=== PATIENT | male | born 1965 | race Caucasian/White ===

== ENCOUNTER 2023-11-14 18:32 | Inpatient (IN) | payer BC, SELFPAY ==
[2023-11-14] VITALS (9 sets, daily range): BP systolic 97–126; BP diastolic 61–73; BMI 38.3; BMI 37.7
[2023-11-14 14:13] LABS: % Basophils 1.8 % (0-2); % Eosinophils 6.5 % (0-6); % Immature Granulocytes 0.4 % (0-0.5); % Lymphocytes 20.1 % (20.5-51.1); % Monocytes 9.2 % (1.7-9.3); Absolute Basophils 0.1 10^3/uL (0-0.2); Absolute Eosinophils 0.5 10^3/uL (0-0.7); Absolute Lymphocytes 1.6 10^3/uL (1.2-3.4); Absolute Monocytes 0.7 10^3/uL (0.1-0.6); Absolute Neutrophils 4.8 10^3/uL (1.4-6.5); Hemoglobin 10.9 g/dL (13.0-18.0); Mean Corp Hgb Conc. 31.1 g/dL (33.0-37.0); Mean Corpuscular Hgb 25.9 pg (27.0-31.0); Mean Corpuscular Volume 83.1 fL (80.0-94.0); Mean Platelet Volume 8.3 fL (7.4-10.4); Nucleated Red Blood Cells % 0 % (-); Platelet Count 520 10^3/uL (130-400); Red Blood Cell Count 4.21 10^6/uL (4.70-6.10); Red Cell Dist. Width 16.7 % (11.5-14.5); White Blood Cell Count 7.8 10^3/uL (4.8-10.8)
[2023-11-14 14:26] LABS: ALT (SGPT) 25 U/L (0-50); AST (SGOT) 24 U/L (17-59); Albumin 3.8 g/dl (3.5-5.0); Alkaline Phosphatase 77 U/L (38-126); Blood Urea Nitrogen 15 mg/dl (9-20); Calcium 9.3 mg/dl (8.4-10.2); Carbon Dioxide 26 mmol/L (22-30); Chloride 104 mmol/L (98-107); Glucose 102 mg/dl (70-99); Potassium 4.4 mmol/L (3.5-5.1); Sodium 133 mmol/L (135-145); Total Bilirubin 0.7 mg/dl (0.2-1.3); Total Protein 6.6 g/dl (6.3-8.2); eGFR > 60.00
[2023-11-14 14:34] LABS: Troponin I 0.012 ng/ml
--- NOTE | 2023-11-14 15:59 | ED.GENMED ---
History of Present Illness
General
Chief Complaint: Heart Rate Problem
Source: patient and physician
Time Seen by Provider: 11/14/23 15:40
Travel History
Have you had any contact with someone who has COVID-19?: No
Do you have any symptoms of coronavirus? Fever > 100 degrees, chills, cough, shortness of breath, sore throat, loss of taste or smell, muscle aches, or headache?: No
History of Present Illness
History of Present Illness:
58-year-old male with recent CABG with valve sparing root replacement presenting to the emergency department from cardiothoracic surgeons office where he was there for a postoperative visit and found to be in new onset A-fib/a flutter noting that
over the last week to 10 days he has been experiencing exertional dyspnea and a chest congestion sensation with some fatigue. Patient denies any fevers, chills, rigors, nausea, vomiting, chest pain, palpitations, diaphoresis, lower extremity edema,
cough, hemoptysis or pleurisy. Patient reports good compliance with his aspirin and Plavix that he was started on following the CABG. He denies any other concerns at this time.
Past History
Past History
ED Past Medical History: CAD, GERD and DE
ED Past Surgical History: Appendectomy, Bowel resection and Cardiac
Social History
Tobacco: Non-smoker
Alcohol: Occasional
Drug: None
Personal:
Living: with family
Employment: Employed
Review of Systems
Review of Systems
All Other Systems: ROS reviewed and negative except as documented in HPI and ROS
Phy Exam
Physical Exam
Physical Exam:
GENERAL: Alert , in no apparent distress
EYE: conjunctiva clear
NECK: Supple, no significant adenopathy.
ENT: o/p clr, mmm.
CARDIAC: Regular rate and rhythm
LUNGS: Clear breath sounds bilaterally, no acute respiratory distress, no wheezes/rales/rhonchi
NEUROLOGICAL: Alert and oriented
SKIN: Warm and dry, skin intact. Well-healing vertically oriented sternal scar noted
MUSCULOSKELETAL: well perfused. No edema
PSYCH: Normal and appropriate interaction.
Scores
[id number] Score for Afib Stroke Risk
Age in Years (65=0, 65-74=1, >/=75=2): <65
Sex (Female=+1): Male
Congestive Heart Failure History (Yes=+1): No
Hypertension History (Yes=+1): Yes
Stroke/TIA/Thromboembolism History (Yes=+2): No
Vascular Disease History (Yes=+1): Yes
Diabetes Mellitus (Yes=+1): No
Score: 2
Anticoagulation Recommendations: Recommend anticoagulation (as validated in nonvalvular fib)
Heart Failure Risk
Heart Failure Risk Score: Not Applicable
Heart Score for Chest Pain Patients
STEMI patient?: Not applicable
Withdrawal Assessment of Alcohol
Withdrawal Assessment Completed?: Not applicable
Course
Orders/Labs/Results
Orders:
Orders
11/14/23 13:47
EKG [Electrocardiogram (*1)] Urgent
Reason for Study: Atrial Fibrillation
EKG- Treatment ONCE
11/14/23 13:58
Complete Blood Count/With Diff Urgent
Comprehensive Metabolic Panel Urgent
NT-proBNP Urgent
Comment: ADD ON
Troponin I Urgent
11/14/23 15:41
Echo 2D MMode Color/Doppler Urgent
Reason for Study: new onset aflutter, recent CABG
11/14/23 16:09
Add On- LAB Urgent
Tests Added?: BNP
11/14/23 17:05
Diltiazem HCl [Cardizem] 10 mg IV NOW STA
11/14/23 17:15
Diltiazem 125 mg/125 ml Nss [Cardizem] 125 mg in 125 ml IV PER PROTOCOL
Initial dose in mg/hr, then titrate:: 5
Titrate to keep:: Heart rate 80-100 bpm
Titrate by mg/hr:: 5 mg/hr
Frequency of titrations (minutes):: 15
Maximum dose in mg/hr:: 15
11/14/23 17:29
CXR2 [CR Chest - 2 Views ] Routine
Comment:
Reason For Exam: SOB
11/14/23 17:54
Admit/Transfer Patient As Directed
Co-Sign Provider:
Level of Care: Inpatient admission
Assign to:: IVU
Physician / Group: hector
Diagnosis: new onset afib
Reason for Hospitalization: new onset afib
Expected length of stay greater than two midnights?: Yes
ELOS- Estimated Length of Stay in days: 2
I certify the patient meets the requirements for IP care: Yes
Code Status As Directed
Resuscitation Status: Full Code
11/14/23 18:09
Cardiothoracic Surgery Consult Routine
Consulting Provider: Moe Shirley
Was physician already notified: Yes
11/14/23 20:00
Apixaban [Eliquis] 5 mg PO BID
11/15/23 06:00
Echo Remi W/echo Doppler (#17) IN AM
Reason for Study: prior to cardioversion
NPO
Allow oral meds: Yes
Allow clear liquids: No
Abnormal Lab Results
11/14/23
13:58
RBC 4.21 L 10^6/uL
(4.70-6.10)
Hgb 10.9 L g/dL
(13.0-18.0)
Hct 35.0 L %
(39.0-52.0)
MCH 25.9 L pg
(27.0-31.0)
MCHC 31.1 L g/dL
(33.0-37.0)
RDW 16.7 H %
(11.5-14.5)
Plt Count 520 H 10^3/uL
(130-400)
Absolute Monos (auto) 0.7 H 10^3/uL
(0.1-0.6)
Lymphocytes % 20.1 L %
(20.5-51.1)
Eosinophils % 6.5 H %
(0-6)
Sodium 133 L mmol/L
(135-145)
Glucose 102 H mg/dl
(70-99)
11/14/23 13:58
11/14/23 13:58
Vital Signs
Initial and Last Documented VS:
Initial Vital Signs
Temp Pulse Resp BP Pulse Ox
98.4 F 103 18 118/73 96
11/14/23 13:46 11/14/23 13:46 11/14/23 13:46 11/14/23 13:46 11/14/23 13:46
Last Documented Vital Signs
Temp Pulse Resp BP Pulse Ox
98.4 F 100 21 104/63 94
11/14/23 13:46 11/14/23 18:45 11/14/23 18:45 11/14/23 18:08 11/14/23 18:45
Van Cdl Driver consulted with Physician
Van Cdl Driver consulted with physician?: Yes
Name of Physician Consulted: Naya
MDM/Problems Addressed
Differential Diagnosis Includes:
Cardiac dysrhythmia, electrolyte disturbance, anemia, PE considered given recent surgical procedure
MDM/Problems Addressed:
58-year-old male with extensive recent cardiac past medical history presenting the emergency department at request of cardiothoracic surgery after patient was found to be in a new onset a flutter while in office. Patient has been symptomatic over
the last week to 10 days. On arrival to the emergency department here patient's heart rate is between 105 and 118 bpm and remains in a flutter. Lab work was initiated in triage and shows an upward trending hemoglobin and otherwise unremarkable
chemistry. I did add on a BNP. An echocardiogram was ordered at the request of CT surgery and will consult with cardiology to help determine treatment and disposition.
Chronic conditions affecting care: CAD
Acute Exacerbation and/or Progression of Chronic Illness: CAD
*Radiology
Radiology exam reviewed: radiology read reviewed
*Pulse Oximetry
Patient hypoxic: no
*EKG
Interpreted by ED Provider?: Yes
Comparison EKG: changes noted
Heart Rate: 115
Rate: tachycardiac
Rhythm: atrial flutter
[place]: normal axis
Ischemia: T-wave inversion (Inferolateral leads)
*Cash Applications Representative Interpretation
Rate: tachycardiac
Rhythm: atrial flutter
*Critical Care Note
Total Time (30-74mins, 75-104mins- exclusive of procedures): Not Applicable
Data Reviewed
Review of Other/Old Records Reveals: Labs and Operative Reports
Source: patient and physician
Patient Management
Discussion with other providers: Hospitalist and Bodywork Therapist
Escalation/DeEscalation of care consider admission/obs:
Patient seen by education rep who recommends admission to hospitalist service and they will continue to monitor. They ordered Cardizem for the patient's a flutter. Hospitalist is aware and accepts patient for continued evaluation and treatment.
ED Attending Note
-
Portions of this chart may have been created with voice recognition software.� Occasional wrong word or��sound alike� substitutions may have occurred due to the inherent limitations of voice recognition software.
Discharge Plan
Departure
Patient Disposition: Admit
Date of Disposition: 11/14/23
Time of Disposition: 17:12
Presentation/result/management discussed w/ accepting MD/DO: Hospitalist
Discharge Problem:
Atrial flutter
Interventions
Interventions:
*Risk Screen - Suicide Last Done: 11/14/23 15:56
*General Assessment Last Done: 11/14/23 17:15
*Neglect/Abuse Screening Last Done: 11/14/23 15:56
ED- Fall Risk Assessment Last Done: 11/14/23 15:57
*ED COVID-19 Vaccine History Last Done: 11/14/23 15:56
ED- Cardiac Assessment Last Done: 11/14/23 15:57
ED- Pulmonary Assessment Last Done: 11/14/23 15:58
[2023-11-14 17:07] LABS: NT-proBNP 1650 pg/ml
--- NOTE | 2023-11-14 17:22 | CON.CAR ---
Addendum entered and electronically signed by Robert Vargas MD 11/14/23 17:58:
Patient seen and examined in collaboration with HELICOPTER ENGINEER; agree with below.
-58-year-old male with medical history outlined below, including recent CABG, aortic root replacement, and ascending aorta replacement 08/16/24; admitted with new onset atrial fibrillation with RVR.
-The patient will undergo an echocardiogram today to thoroughly reassess cardiac function and exclude pericardial effusion.
-If no pericardial effusion, the patient will be started on Eliquis 5 mg twice daily.
-Will start the patient on a Cardizem drip with bolus; if does not convert, will undergo EDGARD/cardioversion tomorrow AM.
-Continue current dose of metoprolol for now.
-Continue Plavix; discontinue aspirin as the patient will now be on Eliquis.
-hand laminator; will follow.
Original Note:
Consultation
Consultation Request
Date/Time Consultation Requested: 11/14/23 1600
Date/Time Consultation Performed: 11/14/23 1630
Requesting Provider: Moe NAGEL
Performing Provider: Liana WILLIS for Dr. Dai
Reason for Consultation: Atrial flutter
Medical History
-
Chief Complaint: fatigue
History of Present Illness:
58 y/o male with HTN, HLD, CAD, and aortic root dilation who is s/p aortic root replacement and CABG (s/p Valve sparing root replacement (Vega 5 with a 32mm Valsalva graft) and ascending aorta replacement (32mm graft), Resuspension of aortic valve
with aortic valve leaflet repair, Reimplantation of left and right coronary buttons, Coronary artery bypass grafting x 2 (aorta to RSVG to OM1 sequenced to LPL) on 10/16/[address] Gaines. He was feeling well, but then about 10 days ago became tired and
weak. He has some SOB at times. Dr. Gaines noted arrhythmia today at follow-up. In ER, he has atrial flutter. Rates are mildly fast.
Past Medical History
Past Medical History: CAD, HTN, Hypercholesterolemia and Other (as above)
Past Surgical History: Cardiac
Social History
Personal:
Living: With Family
Family History
Family History: Reviewed & Not Pertinent
Allergies / Home Medications
Allergy/AdvReac Type Severity Reaction Status Date / Time
No Known Allergies Allergy Verified 09/21/23 13:49
Medication Instructions Recorded Confirmed Type
atorvastatin 40 mg tablet (Lipitor) 40 mg PO QPM High Cholesterol 08/15/23 11/14/23 History
aspirin 81 mg chewable tablet 81 mg PO DAILY Blood Clot 10/16/23 11/14/23 History
Prevention/Tx
clopidogrel 75 mg tablet 75 mg PO DAILY Blood clot 10/22/23 11/14/23 Rx
prevention/tx #90 tabs
gabapentin 400 mg capsule 400 mg PO HS parathesia #60 caps 10/22/23 11/14/23 Rx
metoprolol succinate 25 mg 25 mg PO DAILY Blood pressure #90 10/22/23 11/14/23 Rx
tablet,extended release 24 hr tabs
pantoprazole 40 mg tablet,delayed 40 mg PO DAILY Gastrointestinal 10/22/23 11/14/23 Rx
release issue #90 tabs
cyclobenzaprine 5 mg tablet 10 mg PO TID PRN muscle spasm #30 10/24/23 11/14/23 Rx
tabs
acetaminophen 500 mg tablet 1,000 mg PO Q6H PRN mild pain/fever 11/14/23 11/14/23 History
Review of Systems
-
History Source: Patient
All other systems: Negative unless noted
Constitutional: Weight Loss and Fatigue
Respiratory: Trouble Breathing
Physical Exam
Vital Signs
Temp Pulse Resp BP Pulse Ox
98.4 F 114 22 126/63 96
11/14/23 13:46 11/14/23 17:02 11/14/23 17:02 11/14/23 15:55 11/14/23 17:00
Lab Results
11/14/23 13:58
11/14/23 13:58
Troponin I 0.012 ng/ml 11/14/23 13:58
Ymh-O-Ewakhtusvca Pept 1650 pg/ml 11/14/23 13:58
Physical Exam
General: Well Developed, Well Nourished and No Apparent Distress
HEENT: Normocephalic and Anicteric
Respiratory: Crackles (right base, mild)
Cardiac: Irregular Rhythm
Musculoskeletal: No Edema
Skin: Warm and Dry
Neuro: AO x 3
Psych: Calm
Impression / Plan
-
Atrial flutter:
-mildly fast rates
-start Eliquis for OAC- [id number] score is 2 for HTN and CAD
-start diltiazem gtt (which requires intensive monitoring for toxicity), continue usual BB
-EDGARD/CV in AM
CAD:
-Prior NSTEMI/PCI in June 2023, s/p PCI to the RPL.
-S/P 2V CABG (sequential SVG to OM, LPL)
-Telemetry stable; remains in sinus rhythm.
-continue Plavix, Eliquis to replace aspirin
-continue statin and BB
Aortic root dilation:
-s/p valve sparing replacement - (Vega 5 with a #32 Valsalva graft) on 10/16/2022.
SOB:
-likely related to arrhythmia, but checking echo in ER
-BNP up, but weight is down and no edema
-check CXR
HTN:
-stable
-monitor with diltiazem drip
Data Reviewed
-
EKG: Tracing Personally Visualized and interpreted (atrial flutter)
Radiology: Other (CXR ordered)
Medical Tests (Nuc Med, Echo etc): Report Reviewed by me (echo 10/17/23: Normal left ventricular chamber size. Normal left ventricular systolic function. Left ventricular ejection fraction is 55%. Normal regional wall motion. Diastolic function
indeterminate. Normal right ventricular size and function. Normal atria. S/P aortic valve resuspension.)
Labs: Labs Reviewed by me
[2023-11-14] MEDS: CARDIZEM 10 MG IV (17:40)
[2023-11-14] MEDS: CARDIZEM 125 IV (17:43)
--- NOTE | 2023-11-14 18:02 | HPS.HSE ---
Family Physician
-
Family Physician: Mandi Vizcarra
Chief Complaint
-
Allergies
Allergy/AdvReac Type Severity Reaction Status Date / Time
No Known Allergies Allergy Verified 09/21/23 13:49
Home Medications
atorvastatin 40 mg tablet (Lipitor) 40 mg PO QPM High Cholesterol 08/15/23
aspirin 81 mg chewable tablet 81 mg PO DAILY Blood Clot Prevention/Tx 10/16/23
clopidogrel 75 mg tablet 75 mg PO DAILY Blood clot prevention/tx #90 tabs 10/22/23
gabapentin 400 mg capsule 400 mg PO HS parathesia #60 caps 10/22/23
metoprolol succinate 25 mg tablet,extended release 24 hr 25 mg PO DAILY Blood pressure #90 tabs 10/22/23
pantoprazole 40 mg tablet,delayed release 40 mg PO DAILY Gastrointestinal issue #90 tabs 10/22/23
cyclobenzaprine 5 mg tablet 10 mg PO TID PRN muscle spasm #30 tabs 10/24/23
acetaminophen 500 mg tablet 1,000 mg PO Q6H PRN mild pain/fever 11/14/23
History of Present Illness
58-year-old male with past medical history of CAD status post CABG, valve sparing root/ascending aorta replacement on 10/16, GERD, presenting from cardiothoracic surgeons office for postoperative visit and found to be in new onset atrial
fibrillation/flutter. Patient has been having exertional shortness of breath and chest congestion with cough over the past 10 days with some fatigue. Patient denies fevers or chills, nausea or vomiting, chest pain, palpitation, dizziness, lower
extremity edema. He has been compliant with aspirin and Plavix.
He is down 7 pounds since surgery.
Medical History
Past Medical History
Past Medical History: Reports Other (CAD status post CABG, valve sparing root/ascending aorta replacement on 10/16, GERD)
Past Surgical History: Reports Other (CABG, valve sparing root/ascending aorta replacement on 10/16)
Social History
Tobacco: Non-smoker
Alcohol: None
Drug: None
Family History
Family History: Other (Parents with heart disease )
Allergies / Home Medications
Allergies reflects when Allergies were last updated in [employer].
Home Medications with original date entered in [employer]
Allergy/Medication List:
Allergies
Allergy/AdvReac Type Severity Reaction Status Date / Time
No Known Allergies Allergy Verified 09/21/23 13:49
Home Medications
atorvastatin 40 mg tablet (Lipitor) 40 mg PO QPM High Cholesterol 08/15/23
aspirin 81 mg chewable tablet 81 mg PO DAILY Blood Clot Prevention/Tx 10/16/23
clopidogrel 75 mg tablet 75 mg PO DAILY Blood clot prevention/tx #90 tabs 10/22/23
gabapentin 400 mg capsule 400 mg PO HS parathesia #60 caps 10/22/23
metoprolol succinate 25 mg tablet,extended release 24 hr 25 mg PO DAILY Blood pressure #90 tabs 10/22/23
pantoprazole 40 mg tablet,delayed release 40 mg PO DAILY Gastrointestinal issue #90 tabs 10/22/23
cyclobenzaprine 5 mg tablet 10 mg PO TID PRN muscle spasm #30 tabs 10/24/23
acetaminophen 500 mg tablet 1,000 mg PO Q6H PRN mild pain/fever 11/14/23
Review of Systems
-
History Source: Patient
A 12 point ROS was completed and negative except as noted: Yes
Constitutional: Reports No Symptoms
EENT: Reports No Symptoms
Respiratory: Reports See HPI
Cardiac: Reports See HPI
Abdomen/GI: Reports No Symptoms
: Reports No Symptoms
Musculoskeletal: Reports No Symptoms
Skin: Reports No Symptoms
Neurological: Reports No Symptoms
Endocrine: Reports No Symptoms
Hematologic/Lymphatic: Reports No Symptoms
Psych: Reports No Symptoms
Physical Exam
Vital Signs
Vital Signs
Temp Pulse Resp BP Pulse Ox
98.4 F 105 18 102/65 96
11/14/23 13:46 11/14/23 17:45 11/14/23 17:45 11/14/23 17:20 11/14/23 17:45
Physical Exam
General: Well Developed, Well Nourished and No Apparent Distress
HEENT: NormoCephalic, Moist mucous membranes and Atraumatic
Respiratory: Clear
Cardiac: S1/S2 and Regular Rhythm; No Murmur or Rub
GI: Soft, Non Tender, Non Distended and Normal Bowel Sounds; No Organomegaly
Rectal: Deferred by Provider
Musculoskeletal: No Clubbing, No Cyanosis and No Edema
Skin: No Rash
Neuro: Nonfocal/grossly intact
Laboratory Results
-
11/14/23 13:58
11/14/23 13:58
Laboratory Results
Total Bilirubin 0.7 mg/dl (0.2-1.3) 11/14/23 13:58
AST 24 U/L (17-59) 11/14/23 13:58
ALT 25 U/L (0-50) 11/14/23 13:58
Alkaline Phosphatase 77 U/L (38-126) 11/14/23 13:58
Troponin I 0.012 ng/ml 11/14/23 13:58
Data Reviewed
-
Lab Data: Labs Reviewed by me
Old Records: Reviewed
Impression/Plan
-
IMPRESSION:
PLAN:
# New onset atrial fibrillation with RVR
-Eliquis started
-Cardizem drip
-Check chest x-ray
-Echo shows ejection fraction 55%
-Cardiology consulted
-N.p.o. past midnight for EDGARD/cardioversion
# CAD status post recent two-vessel CABG
# Aortic root dilation status post recent valve sparing root/ascending aorta replacement
-Cardiothoracic surgery consulted
-Continue Plavix in addition to Eliquis in place of aspirin
-Continue statin and metoprolol
GERD
-Continue Protonix
Full code
DVT prophylaxis�Eliquis
Cardiac diet
[2023-11-14] MEDS: ELIQUIS 5 MG PO (20:37)
[2023-11-14] MEDS: NEURONTIN 400 MG PO (20:37)
[2023-11-14] MEDS: LIPITOR 40 MG PO (20:38)
--- NOTE | 2023-11-14 21:30 | PTCARENOTE ---
HR down to 70's-90's. bp 107/73. DESCRIPTIVE CATALOG LIBRARIAN aware, order to hold cardizem gtt for 1 hour and monitor HR & BP.
--- NOTE | 2023-11-14 22:16 | CONSULT.CT ---
Consultation
-
Date/Time Consultation Requested: 11/14/23, 18:09
Date/Time Consultation Performed: 11/14/23, 20:45
Requesting Provider: Dr. Riley
Performing Provider: Aurelio Pedroza, MIGUEL ÁNGEL for Dr. Gaines
Reason for Consultation: new a-fib, s/p recent open heart surgery 10/16/23
Patient History
Physicians
Family Physician: Dr. Mandi Vizcarra
Outpatient Joint Setter: Dr. Kayden Lance
Inpatient Joint Setter: Dr. Vargas
History of Present Illness
Mr Knox is a very pleasant 58 yo gentleman who underwent on 10/16/23 CABG x2 (Ao-svg-OM1 seq to LPL) with valve sparing root replacement and ascending Ao replacement (32 mm graft) and re-implantation of his [place] aortic valve with aortic valve
leaflet repair by Dr. Gaines. He was discharged on 10/22/23 and was seen in our office today for postop visit. He was found to be in a-fib and was sent to ED for evaluation. Pt has been doing well after the surgery, but noted having increased fatigue
and SOB in the past 2 weeks.
He is currently in a-flutter 90s, on iv Cardizem @ 10 mg/h and was started on Eliquis after Echo today confirmed no pericardial effusion. He's planned to undergo EDGARD/CV in am if doesn't convert spontaneously overnight. Overall, he appears
comfortable with no complaints and stable volume status. All his incisions appear stable and healing well.
Past Medical History
Past Medical History: CAD (hx NSTEMI with PCI/ stent to the RPL), GERD, HTN, Hypercholesterolemia, Valvular Disease (Aortic root aneurysm with mild to moderate aortic valve insufficiency) and Other (class 3 obesity (BMI 38))
R eyelid proptosis and R hand paresthesia post CABG - improved; Hx Hepatitis B
Past Surgical History
-CABG x2 (svg-OM1 seq to LPL) and valve sparing root replacement (Vega V with 32 mm Valsalva graft) and ascending aorta replacement (32 mm graft), re-implantation of [place] aortic valve with aortic valve leaflet repair and re-implantation of left
and right coronary buttons, RLE EVH on 10/16/[address] Gaines
Family History
Family Medical History: Sudden (Hx of sudden cardiac in the family at a young age)
Social History
Alcohol: None
Drug: None
Tobacco: Non-Smoker
Allergies
Allergy/AdvReac Type Severity Reaction Status Date / Time
No Known Allergies Allergy Verified 09/21/23 13:49
Home Medications
Medication Instructions Recorded Confirmed Type
atorvastatin 40 mg tablet (Lipitor) 40 mg PO QPM High Cholesterol 08/15/23 11/14/23 History
aspirin 81 mg chewable tablet 81 mg PO DAILY Blood Clot 10/16/23 11/14/23 History
Prevention/Tx
clopidogrel 75 mg tablet 75 mg PO DAILY Blood clot 10/22/23 11/14/23 Rx
prevention/tx #90 tabs
gabapentin 400 mg capsule 400 mg PO HS parathesia #60 caps 10/22/23 11/14/23 Rx
metoprolol succinate 25 mg 25 mg PO DAILY Blood pressure #90 10/22/23 11/14/23 Rx
tablet,extended release 24 hr tabs
pantoprazole 40 mg tablet,delayed 40 mg PO DAILY Gastrointestinal 10/22/23 11/14/23 Rx
release issue #90 tabs
cyclobenzaprine 5 mg tablet 10 mg PO TID PRN muscle spasm #30 10/24/23 11/14/23 Rx
tabs
acetaminophen 500 mg tablet 1,000 mg PO Q6H PRN mild pain/fever 11/14/23 11/14/23 History
Review of Systems
-
History Source: Patient
General: Reports Fatigue (for past 2 weeks)
HEENT: Reports No Symptoms
Respiratory: Reports [place]
Cardiac: Reports No Symptoms
Abdomen/GI: Reports No Symptoms
: Reports No Symptoms
Musculoskeletal: Reports No Symptoms
Skin: Reports No Symptoms
Neurological: Reports No Symptoms
Vascular: Reports No Symptoms
Physical Exam
Vital Signs
Temp 98.4 F 11/14/23 13:46
Temp route: Oral 11/14/23 13:46
Pulse 84 11/14/23 20:19
Rhythm: Atrial fibrillation 11/14/23 21:19
Resp Rate 20 11/14/23 20:19
Blood pressure 107/70 11/14/23 20:19
MAP (cuff-Eva Monitor) 83 11/14/23 20:19
SaO2 97 11/14/23 20:15
Oxygen Mode of Delivery Room air 11/14/23 20:15
Can the patient verbally communicate their pain? Yes 11/14/23 20:39
Actual Weight 266 lb 12.149 oz 11/14/23 15:56
Body Mass Index (BMI) 38.3 11/14/23 15:56
Labs
11/14/23 13:58
11/14/23 13:58
Troponin I 0.012 ng/ml 11/14/23 13:58
Qhd-F-Zbqwuuufycs Pept 1650 pg/ml 11/14/23 13:58
Diagnostic Studies
Echo 11/14/23:
�Left ventricular ejection fraction is 50-55%. Wall motion is consistent with postoperative state. Normal right ventricular size and function.
�Mild mitral regurgitation.
�Trileaflet aortic valve. Aortic valve opens normally. No aortic regurgitation is seen.
�Trace tricuspid regurgitation. Estimated pulmonary artery pressure of 20-25 mmHg.
�No pericardial effusion.
�
�No significant change since the prior study of 10/17/2023.
Exam
General: Well Developed, No Apparent Distress and Comfortable
HEENT: Normocephalic, Anicteric, Moist Mucous Membranes, PERRLA and EOMI
Neck: Other (no JVD)
Respiratory: Clear
Cardiac: S1/S2 and Irregular Rhythm
GI: Soft, Non Tender, Non Distended and Normal Bowel Sounds
Skin: Warm and Dry
Neuro: Awake, AO x 3 and No Motor Deficits
Extremities: Other (no edema b/l, 2+ DP b/l)
Psych: Calm
Assessment / Plan
-
-Admitted 11/14 with new a-flutter - started on Eliquis and iv Cardizem. Plans for EDGARD/CV in am 11/15
-plans to stop ASA and continue Plavix and Eliquis going forward
-CAD/Ao root aneurysm/Av insufficiency - s/p CABG x2 and valve sparing root and ascending Ao replacement with re-implantation of [place] aortic valve with aortic valve leaflet repair on 10/16/[address] Gaines
-Echo this admission with nl functioning AV, no AI. Mild MR. No pericardial effusion
-All incisions are clean, dry, intact and healing well. Sternal incision is stable.
-Volume status appears stable
-Hx NSTEMI with stent of RPL
-HTN
-HLD
-Class 3 obesity
-GERD
-Hx hepatitis B
-Hx diverticulitis
Echo 11/14/23:
�Left ventricular ejection fraction is 50-55%. Wall motion is consistent with postoperative state.
�Normal right ventricular size and function.
�Mild mitral regurgitation.
�Trileaflet aortic valve. Aortic valve opens normally. No aortic regurgitation is seen.
�Trace tricuspid regurgitation. Estimated pulmonary artery pressure of 20-25 mmHg.
�No pericardial effusion.
�No significant change since the prior study of 10/17/2023.
--- NOTE | 2023-11-14 22:34 | PTCARENOTE ---
New admission to floor. Pt aaox3, pleasant. Denies pain. Slight SOB noted when talking. Remains 97% RA. Still afib on monitor. Cardizem gtt running at 15mg on admission. Weaned down to 5mg and contacted FRUIT RECEIVER for HR hitting 70's. Order for infusion off
for 1 hour and monitor HR & BP. After 1 hour HR was 80- low 100's. Order to keep infusion on 5mg & titrate as needed. Will monitor. All other assessment benign. Call davies in reach.
[2023-11-15] VITALS (13 sets, daily range): BP systolic 84–135; BP diastolic 65–108
[2023-11-15 04:49] LABS: % Basophils 1.8 % (0-2); % Eosinophils 8.7 % (0-6); % Immature Granulocytes 0.2 % (0-0.5); % Lymphocytes 24.3 % (20.5-51.1); % Monocytes 9.6 % (1.7-9.3); % Neutrophils 55.4 % (42.2-75.2); Absolute Basophils 0.1 10^3/uL (0-0.2); Absolute Eosinophils 0.6 10^3/uL (0-0.7); Absolute Lymphocytes 1.6 10^3/uL (1.2-3.4); Absolute Monocytes 0.6 10^3/uL (0.1-0.6); Absolute Neutrophils 3.7 10^3/uL (1.4-6.5); Hematocrit 33.7 % (39.0-52.0); Hemoglobin 10.6 g/dL (13.0-18.0); Mean Corp Hgb Conc. 31.5 g/dL (33.0-37.0); Mean Corpuscular Hgb 25.9 pg (27.0-31.0); Mean Corpuscular Volume 82.2 fL (80.0-94.0); Mean Platelet Volume 8.4 fL (7.4-10.4); Nucleated Red Blood Cells % 0 % (-); Platelet Count 481 10^3/uL (130-400); Red Cell Dist. Width 16.5 % (11.5-14.5); White Blood Cell Count 6.7 10^3/uL (4.8-10.8)
[2023-11-15 05:22] LABS: ALT (SGPT) 22 U/L (0-50); AST (SGOT) 20 U/L (17-59); Albumin 3.4 g/dl (3.5-5.0); Alkaline Phosphatase 77 U/L (38-126); Blood Urea Nitrogen 13 mg/dl (9-20); Calcium 9.4 mg/dl (8.4-10.2); Carbon Dioxide 24 mmol/L (22-30); Chloride 103 mmol/L (98-107); Estimated Creatinine Clearance > 125 ml/min; Glucose 94 mg/dl (70-99); Potassium 4.1 mmol/L (3.5-5.1); Sodium 135 mmol/L (135-145); Total Bilirubin 0.9 mg/dl (0.2-1.3); Total Protein 6.1 g/dl (6.3-8.2); eGFR > 60.00
[2023-11-15] MEDS: CARDIZEM 125 IV (07:10)
--- NOTE | 2023-11-15 07:51 | W.PN.CD ---
Today's Communication / Plan
-
- EDGARD dccv
- start po dilt after DCCV
Impression / Plan
-
Atrial flutter:
-mildly fast rates
-start Eliquis for OAC- [id number] score is 2 for HTN and CAD
-EDGARD/DCCV
- will stop dilt gtt and then add 240 mg of Dilt PO after DCCV
CAD:
-Prior NSTEMI/PCI in June 2023, s/p PCI to the RPL.
-S/P 2V CABG (sequential SVG to OM, LPL)
-Telemetry stable HRs controlled
-continue Plavix, Eliquis to replace aspirin
-continue statin and BB
Aortic root dilation:
-s/p valve sparing replacement - (Vega 5 with a #32 Valsalva graft) on 10/16/2022.
SOB:
-likely related to arrhythmia, but checking echo in ER
-BNP up, but weight is down and no edema
-check CXR
HTN:
-stable
-monitor with diltiazem drip
Physical Exam
Vital Signs/Labs
Vital Signs
Temp Pulse Resp BP Pulse Ox
98.3 F 93 16 116/90 98
11/15/23 03:05 11/15/23 06:00 11/15/23 06:00 11/15/23 06:00 11/15/23 00:40
11/14/23 11/15/23 11/16/23
06:59 06:59 06:59
Actual Weight 262 lb 9.129 oz
11/15/23 04:39
11/15/23 04:39
11/14/23
13:58
Puq-Z-Nenzdllgnll Pept 1650
LAB Results
11/14/23
13:58
Troponin I 0.012
Physical Exam
Cardiovascular: Pedal edema is absent and Rhythm/rate is irregular
Respiratory: Respiratory effort normal and Lungs clear to auscul.
GI: Soft
Neuro/Psych: AO x 3
Data Reviewed
-
Date of Service: November 15, 2023
EKG: Tracing Personally Visualized and interpreted
Echo: Report Reviewed by me
Labs: Labs Reviewed by me
[2023-11-15] MEDS: ELIQUIS 5 MG PO ×2 (08:00→20:14)
[2023-11-15] MEDS: TOPROL XL 25 MG PO ×2 (08:00→16:00)
[2023-11-15] MEDS: PROTONIX 40 MG PO (08:00)
[2023-11-15] MEDS: PLAVIX 75 MG PO (08:00)
--- NOTE | 2023-11-15 08:41 | W.PN.HOSP.TC ---
Addendum entered and electronically signed by Chetan Escobar MD 11/15/23 16:54:
Cardiology could not do CV due to has a left atrial appendage thrombus. Cardio will increase his Toprol XL [address] him on Cardizem 120 mg daily and stop the Cardizem gtt. Cont anticoagulation. Continue to monitor him overnight on
telemetry, and we will reassess his heart rate control tomorrow.
Original Note:
Today's Communication/Plan
-
Plan for cardioversion today.
Assessment / Plan
Assessment / Plan
Physical exam:
General: Well Developed, Well Nourished and No Apparent Distress
HEENT: Normocephalic, Atraumatic and Moist Mucous Membranes
Respiratory: Clear to Auscultation; Negative Wheezes, Rales or Rhonchi
Cardiac: Irregular rate and rhythm, tachycardic, and S1/S2
GI: Soft, Nontender and Nondistended
Musculoskeletal: No Clubbing, No Cyanosis and No Edema
Neuro: Awake, Alert and Oriented
Psych: Calm
A/P:
# New onset atrial fibrillation with RVR
-Eliquis started
-Cardizem drip
-Check chest x-ray--> no acute chest pathology.
-Echo shows ejection fraction 55%
-Cardiology consulted
-N.p.o. for EDGARD/cardioversion today
# CAD status post recent two-vessel CABG
# Aortic root dilation status post recent valve sparing root/ascending aorta replacement
-Cardiothoracic surgery consulted
-Continue Plavix in addition to Eliquis in place of aspirin
-Continue statin and metoprolol
GERD
-Continue Protonix
Full code
DVT prophylaxis�Eliquis
Cardiac diet
Anticipated Discharge: 24 - 48 hours
Subjective/Interval History
-
Date of Service: November 15, 2023
Patient denies chest pain or shortness of breath or palpitations today.
Objective Data
-
Labs:
Laboratory Results
11/15/23
04:39
WBC 6.7
Hgb 10.6 L
Hct 33.7 L
Plt Count 481 H
Sodium 135
Potassium 4.1
Chloride 103
Carbon Dioxide 24
BUN 13
Creatinine 0.7
Glucose 94
Calcium 9.4
Total Bilirubin 0.9
AST 20
ALT 22
Alkaline Phosphatase 77
Vital Signs:
Vital Signs
Temp Pulse Resp BP Pulse Ox
98.3 F 97 16 116/90 98
11/15/23 03:05 11/15/23 08:00 11/15/23 06:00 11/15/23 08:00 11/15/23 07:30
Review of Systems
-
All other systems: Reviewed and negative
--- NOTE | 2023-11-15 08:43 | PTCARENOTE ---
Assumed care of pt from night RN, pt AAOx3, makes needs known. No c/o pain or discomfort so far this shift. HR continues in the 90-100, Cardizem drip infusing at 5mg/hr at this time. Pt to go for cardioversion this afternoon, orders to stop Cardizem
drip 45 minutes prior. Will monitor through shift.
--- NOTE | 2023-11-15 15:21 | CM ---
Patient with Dx New onset atrial fibrillation with RVR. Plan cardioversion today. Room air.
Met with patient who resides with his in a 1 story house.
The patient was Independent in ADLs/ambulation.
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
No DME, prior VN or SNF.
PCP - Mandi Vizcarra
Pharmacy - [facility]
The patient says he will be starting cardiac rehab next week.
His Alley works at as a nurse in same day surgery.
No CM d/c needs identified.
Plan home.
[2023-11-15] MEDS: CARDIZEM CD 120 MG PO (16:00)
[2023-11-15] MEDS: LIPITOR 40 MG PO (17:14)
[2023-11-15 19:35] LABS: Hepatitis C Antibody Negative (Negative)
[2023-11-15] MEDS: NEURONTIN 400 MG PO (21:07)
--- NOTE | 2023-11-15 23:20 | PTCARENOTE ---
Received patient from IMU into room 2241. Patient ambulated self and denies any dizziness. Tele monitor applied pt Afib. HR in the 80-100's at rest, and goes up to 110's w/ ambulation. Denies any pain or discomfort. Aware of POC, call davies within
reach.
[2023-11-16] VITALS (7 sets, daily range): BP systolic 94–129; BP diastolic 60–80; BMI 37.2
[2023-11-16 05:10] LABS: Hematocrit 32.6 % (39.0-52.0); Hemoglobin 10.3 g/dL (13.0-18.0); Mean Corp Hgb Conc. 31.6 g/dL (33.0-37.0); Mean Corpuscular Hgb 25.9 pg (27.0-31.0); Mean Corpuscular Volume 81.9 fL (80.0-94.0); Mean Platelet Volume 8.7 fL (7.4-10.4); Platelet Count 458 10^3/uL (130-400); Red Blood Cell Count 3.98 10^6/uL (4.70-6.10); Red Cell Dist. Width 16.2 % (11.5-14.5); White Blood Cell Count 6.5 10^3/uL (4.8-10.8)
[2023-11-16 05:44] LABS: Blood Urea Nitrogen 18 mg/dl (9-20); Calcium 9.3 mg/dl (8.4-10.2); Carbon Dioxide 22 mmol/L (22-30); Chloride 103 mmol/L (98-107); Estimated Creatinine Clearance > 125 ml/min; Glucose 95 mg/dl (70-99); Potassium 4.3 mmol/L (3.5-5.1); Sodium 135 mmol/L (135-145); eGFR > 60.00
--- NOTE | 2023-11-16 08:12 | W.PN.CD ---
Today's Communication / Plan
-
- mildly fast rates -> diltiazem started yesterday and metoprolol increased
-continue Plavix & Eliquis -> We discussed the risks of this (bleeding) and the benefit (stent/grafts & AF). He will report any bleeding promptly.
Impression / Plan
-
Atrial flutter:
-mildly fast rates -> diltiazem started and metoprolol increased
-start Eliquis for OAC- [id number] score is 2 for HTN and CAD
-rates hovering around 110
CAD:
-Prior NSTEMI/PCI in June 2023, s/p PCI to the RPL.
-S/P 2V CABG (sequential SVG to OM, LPL)
-Telemetry stable HRs controlled
-continue Plavix & Eliquis -> We discussed the risks of this (bleeding) and the benefit (stent/grafts & AF). He will report any bleeding promptly.
-continue statin and BB
Aortic root dilation:
-s/p valve sparing replacement - (Vega 5 with a #32 Valsalva graft) on 10/16/2022.
SOB:
-likely related to arrhythmia, but checking echo in ER
-BNP up, but weight is down and no edema
-check CXR
HTN:
-stable
-monitor with diltiazem drip
No CP, palps, or dyspnea
Physical Exam
Vital Signs/Labs
Vital Signs
Temp Pulse Resp BP Pulse Ox
36.9 C 106 20 103/71 95
11/16/23 07:05 11/16/23 04:40 11/16/23 07:05 11/16/23 04:40 11/16/23 07:05
11/15/23 11/16/23 11/17/23
06:59 06:59 06:59
Actual Weight 262 lb 9.129 oz 259 lb 0.69 oz
11/16/23 04:47
11/16/23 04:47
11/14/23
13:58
Wqe-U-Pfnuieediev Pept 1650
LAB Results
11/14/23
13:58
Troponin I 0.012
Physical Exam
Constitutional: No acute distress
EENT: Anicteric and Moist mucous membranes
Cardiovascular: Pedal edema is absent, Systolic murmur absent, Diastolic murmur absent and Rhythm/rate is irregular
Respiratory: Respiratory effort normal
GI: Soft, Distention absent, Non tender and Normal bowel sounds
Neuro/Psych: Alert
Data Reviewed
-
Date of Service: November 16, 2023
Medical Tests (PFT, Pathology etc): Other (tele 110)
[2023-11-16] MEDS: PROTONIX 40 MG PO (08:14)
[2023-11-16] MEDS: ELIQUIS 5 MG PO ×2 (08:14→19:42)
[2023-11-16] MEDS: TOPROL XL 50 MG PO (08:14)
[2023-11-16] MEDS: PLAVIX 75 MG PO (08:14)
[2023-11-16] MEDS: CARDIZEM CD 120 MG PO (08:15)
--- NOTE | 2023-11-16 08:48 | W.PN.HOSP.TC ---
Today's Communication/Plan
-
Continue rate control agents and anticoagulation.
Assessment / Plan
Assessment / Plan
Physical exam:
General: Well Developed, Well Nourished and No Apparent Distress
HEENT: Normocephalic, Atraumatic and Moist Mucous Membranes
Respiratory: Clear to Auscultation; Negative Wheezes, Rales or Rhonchi
Cardiac: Irregular rate and rhythm, tachycardic, and S1/S2
GI: Soft, Nontender and Nondistended
Musculoskeletal: No Clubbing, No Cyanosis and No Edema
Neuro: Awake, Alert and Oriented
Psych: Calm
A/P:
# New onset atrial fibrillation with RVR
-Cardiology could not do CV due to has a left atrial appendage thrombus on 11/15. Cardio increased his Toprol XL [address] him on Cardizem 120 mg daily and stopped the Cardizem gtt. Cont anticoagulation.
-HR still fast today on 11/16-->f/u cardio recommendations
-Check chest x-ray--> no acute chest pathology.
-Echo shows ejection fraction 55%
-Cardiology consult appreciated
# CAD status post recent two-vessel CABG
# Aortic root dilation status post recent valve sparing root/ascending aorta replacement
-Cardiothoracic surgery consulted
-Continue Plavix in addition to Eliquis in place of aspirin
-Continue statin and metoprolol
GERD
-Continue Protonix
Full code
DVT prophylaxis�Eliquis
Cardiac diet
Anticipated Discharge: Within 24 hours
Subjective/Interval History
-
Date of Service: November 16, 2023
Patient denies any chest pain or shortness of breath.
Objective Data
-
Labs:
Laboratory Results
11/16/23
04:47
WBC 6.5
Hgb 10.3 L
Hct 32.6 L
Plt Count 458 H
Sodium 135
Potassium 4.3
Chloride 103
Carbon Dioxide 22
BUN 18
Creatinine 0.7
Glucose 95
Calcium 9.3
Vital Signs:
Vital Signs
Temp Pulse Resp BP Pulse Ox
98.4 F 106 20 103/71 95
11/16/23 07:05 11/16/23 04:40 11/16/23 07:05 11/16/23 04:40 11/16/23 07:05
I&O
11/15/23 11/16/23 11/17/23
06:59 06:59 06:59
Intake Total 760 / 760
Output Total 175 / 175
Balance 585 / 585
--- NOTE | 2023-11-16 09:56 | W.PN.UPDATE ---
Update Note
Progress Note Update
patient seen with Dr. Gaines. Yesterday, EDGARD/CV was cancelled due to a small clot seen in the [facility]. Ok to go home and continue Plavix and eliquis. HR control per cards
--- NOTE | 2023-11-16 10:49 | CM ---
Pricing on [employer] through patient's PP, ID# [id number], , for a 30 day supply it is $45.93 and 90 day $89.93. Patient qualifies for a free 30 day and a $10 co pay card. I placed both in the patient's red discharge folder.
--- NOTE | 2023-11-16 10:50 | CM ---
Chart reviewed. Patient is independent of ADLS, lives with his in a 1 STH, 0 DME. Patient currently with no discharge needs. Plan is for the patient to return home. CM to follow
--- NOTE | 2023-11-16 15:47 | PTCARENOTE ---
Assessment remains stable with no complaints. Pt VSS with Aflutter. visiting
[2023-11-16] MEDS: LIPITOR 40 MG PO (16:56)
[2023-11-16] MEDS: NEURONTIN 400 MG PO (22:30)
[2023-11-17 04:00] VITALS: BP 108/82
[2023-11-17 04:14] VITALS: BMI 37.2
[2023-11-17 04:41] LABS: Hematocrit 31.2 % (39.0-52.0); Mean Corp Hgb Conc. 32.1 g/dL (33.0-37.0); Mean Corpuscular Hgb 25.7 pg (27.0-31.0); Mean Corpuscular Volume 80.2 fL (80.0-94.0); Mean Platelet Volume 8.7 fL (7.4-10.4); Platelet Count 463 10^3/uL (130-400); Red Blood Cell Count 3.89 10^6/uL (4.70-6.10); Red Cell Dist. Width 16.6 % (11.5-14.5); White Blood Cell Count 6.9 10^3/uL (4.8-10.8)
[2023-11-17 05:07] LABS: Blood Urea Nitrogen 18 mg/dl (9-20); Carbon Dioxide 23 mmol/L (22-30); Chloride 105 mmol/L (98-107); Estimated Creatinine Clearance > 125 ml/min; Glucose 96 mg/dl (70-99); Sodium 134 mmol/L (135-145); eGFR > 60.00
[2023-11-17 07:19] VITALS: BP 116/80
--- NOTE | 2023-11-17 08:26 | W.PN.CD ---
Addendum entered and electronically signed by Robert Vargas MD 11/17/23 09:56:
Patient seen and examined in collaboration with BATCH UNIT TREATER; agree with below.
-Patient's heart rates are fairly controlled; continue Toprol-XL 50 mg daily and Cardizem CD 120 mg daily--unable to increase due to blood pressure limitations.
-Continue Eliquis 5 mg twice daily and Plavix 75 mg daily.
-Will follow-up with Cardiology in approximately 2 weeks as scheduled; subsequent repeat EDGARD/cardioversion attempt will be arranged at that time.
-Stable for discharge to home today.
Original Note:
Today's Communication / Plan
-
Continue rate control
EDGARD/DCCV reattempt in 4 weeks
Impression / Plan
-
Background: 58M HTN, HLD, CAD, and aortic root dilation who is s/p aortic root replacement and CABG (s/p Valve sparing root replacement (Vega 5 with a 32mm Valsalva graft) and ascending aorta replacement (32mm graft), Resuspension of aortic valve
with aortic valve leaflet repair, Reimplantation of left and right coronary buttons, Coronary artery bypass grafting x 2 (aorta to RSVG to OM1 sequenced to LPL) on 10/16/[address] Gaines presented with atrial flutter
Atrial flutter:
-mildly fast rates -> diltiazem started and metoprolol increased, stable
-start Eliquis for OAC- [id number] score is 2 for HTN and CAD
-rates hovering around 100
-DCCV canceled yesterday due to small clot in [facility]
CAD:
-Prior NSTEMI/PCI in June 2023, s/p PCI to the RPL.
-S/P 2V CABG (sequential SVG to OM, LPL)
-Continue Plavix & Eliquis -> We discussed the risks of this (bleeding) and the benefit (stent/grafts & AF). He will report any bleeding promptly.
-Continue statin and BB
Aortic root dilation, s/p valve sparing replacement - (Vega Rincon with a #32 Valsalva graft) on 10/16/2022.
SOB, improved with rate control
HTN, stable with addition of rate control
Subjective: No CP, palps, or dyspnea
Physical Exam
Vital Signs/Labs
Vital Signs
Temp Pulse Resp BP Pulse Ox
98.2 F 95 16 108/82 96
11/17/23 07:17 11/17/23 07:17 11/17/23 07:17 11/17/23 04:00 11/17/23 07:17
11/16/23 11/17/23 11/18/23
06:59 06:59 06:59
Actual Weight 117.5 kg 117.6 kg
11/17/23 04:09
11/17/23 04:09
11/14/23
13:58
Onh-P-Eietojlvgfd Pept 1650
LAB Results
11/14/23
13:58
Troponin I 0.012
Physical Exam
Constitutional: No acute distress and Comfortable
EENT: Anicteric and Moist mucous membranes
Cardiovascular: Rhythm/rate is irregular, S1S2 is normal and Murmur/rub/gallop absent
Respiratory: Respiratory effort normal and Lungs clear to auscul.
GI: Soft, Distention absent, Flat, Non tender and Normal bowel sounds
Neuro/Psych: AO x 3
Other: Skin (warm and dry without edema)
Data Reviewed
-
Date of Service: November 17, 2023
Labs: Labs Reviewed by me
Old Records: Reviewed
--- NOTE | 2023-11-17 08:44 | W.PN.HOSP.TC ---
Today's Communication/Plan
-
Continue current management. Discharge planning today
Assessment / Plan
Assessment / Plan
Physical exam:
General: Well Developed, Well Nourished and No Apparent Distress
HEENT: Normocephalic, Atraumatic and Moist Mucous Membranes
Respiratory: Clear to Auscultation; Negative Wheezes, Rales or Rhonchi
Cardiac: Regular rate and rhythm, and S1/S2
GI: Soft, Nontender and Nondistended
Musculoskeletal: No Clubbing, No Cyanosis and No Edema
Neuro: Awake, Alert and Oriented
Psych: Calm
A/P:
# New onset atrial fibrillation with RVR
-Cardiology could not do CV due to has a left atrial appendage thrombus on 11/15. Cardio increased his Toprol XL [address] him on Cardizem 120 mg daily and stopped the Cardizem gtt. Cont anticoagulation.
-HR improved now
-Check chest x-ray--> no acute chest pathology.
-Echo shows ejection fraction 55%
-Cardiology consult appreciated
-Cardio cleared him for discharge
# CAD status post recent two-vessel CABG
# Aortic root dilation status post recent valve sparing root/ascending aorta replacement
-Cardiothoracic surgery consulted
-Continue Plavix in addition to Eliquis in place of aspirin
-Continue statin and metoprolol
GERD
-Continue Protonix
Full code
DVT prophylaxis�Eliquis
Cardiac diet
Anticipated Discharge: Today
Subjective/Interval History
-
Date of Service: November 17, 2023
Patient denies any chest pain or shortness of breath today.
Objective Data
-
Labs:
Laboratory Results
11/17/23
04:09
WBC 6.9
Hgb 10.0 L
Hct 31.2 L
Plt Count 463 H
Sodium 134 L
Potassium 4.0
Chloride 105
Carbon Dioxide 23
BUN 18
Creatinine 0.8
Glucose 96
Calcium 9.0
Vital Signs:
Vital Signs
Temp Pulse Resp BP Pulse Ox
98.2 F 95 16 108/82 96
11/17/23 07:17 11/17/23 07:17 11/17/23 07:17 11/17/23 04:00 11/17/23 07:17
I&O
11/16/23 11/17/23 11/18/23
06:59 06:59 06:59
Intake Total 760 / 760 240 / 240
Output Total 175 / 175
Balance 585 / 585 240 / 240
[2023-11-17 09:28] VITALS: BP 112/71
[2023-11-17] MEDS: CARDIZEM CD 120 MG PO (09:28)
[2023-11-17] MEDS: TOPROL XL 50 MG PO (09:29)
[2023-11-17] MEDS: PLAVIX 75 MG PO (09:29)
[2023-11-17] MEDS: ELIQUIS 5 MG PO (09:29)
[2023-11-17] MEDS: PROTONIX 40 MG PO (09:29)
[2023-11-17 11:06] VITALS: BP 95/55
--- NOTE | 2023-11-17 12:04 | W.DCSUMMARY ---
Discharge Summary
Discharge Data
Date of Admission: 11/14/23
Date of Discharge: 11/17/23
-
Pending Results: No
Hospital Course
Patient 58 years old male who has past medical history of CAD underwent CABG on 10/16/2023 ([id number] seq to the [facility]) with valve sparing root replacement and ascending aortic replacement and reimplantation of his eagle aortic valve with aortic valve
leaflet repair, and he was found to be in A-fib at a postop office and sent to the hospital for further evaluation. He did have some dyspnea and increased fatigue prior to his presentation. Patient was found to have atrial flutter and rapid
ventricular response. Cardiothoracic surgery consulted. Cardiology consulted. He was started on Cardizem drip and Eliquis. He underwent transesophageal echocardiogram for cardioversion but found to have a thrombus in the left atrial appendage so
procedure was not performed. Rate control strategy was pursued at the moment. Cardizem drip was discontinued and beta-blockers or calcium channel blockers orally titrated. He was kept on oral anticoagulation. Patient heart rate was better
controlled with adjustments of medications. CT surgery and cardiology has cleared him for discharge. No uptitration of medications due to blood pressure limitations. Cardiology is planning to attempt probably another cardioversion once he is
fully anticoagulated for least a couple of weeks. Patient otherwise is hemodynamically stable and asymptomatic. He is going to be discharged in relatively stable condition today.
Discharge duration: 35 minutes
Discharge Plan
-
Patient Disposition: Home (Routine Discharge)
Discharge Diagnosis/Procedures: Atrial fibrillation/flutter with rapid ventricular response. History of coronary artery disease with aortic root replacement and coronary artery bypass graft. Hypertension.
Diet: Low Cholesterol
Activity: As tolerated
Driving Restrictions: As prior to admission
Blood Work: Please PCP to order CBC, BMP within 1 week.
Specialty Instructions: Weigh Daily- Call MD for wt gain/loss 3 lbs overnight/5 lbs in 1 week
Referrals:
Mandi Vizcarra, DO [Family Provider] - in less than 1 week
Lizet Mcpherson CRNP [Specified Professional Personl] - 11/28/23 1:40 pm
Quincy Gaines MD [Active] - in two weeks
Prescriptions:
New
metoprolol succinate 50 mg Tablet Extended Release 24 Hr
50 mg PO DAILY 30 Days Qty: 30 0RF
diltiazem HCl 120 mg Capsule,Extended Release 24hr
120 mg PO DAILY 30 Days Qty: 30 0RF
Eliquis 5 mg Tablet
5 mg PO BID 30 Days Qty: 60 0RF
Continued
gabapentin 400 mg Capsule
400 mg PO HS Qty: 60 0RF
clopidogrel 75 mg Tablet
75 mg PO DAILY Qty: 90 3RF
pantoprazole 40 mg Tablet,Delayed Release (Dr/Ec)
40 mg PO DAILY Qty: 90 3RF
cyclobenzaprine 5 mg tablet
10 mg PO TID PRN (Reason: muscle spasm) Qty: 30 0RF
atorvastatin [Lipitor] 40 mg Tablet
40 mg PO QPM
acetaminophen 500 mg Tablet
1,000 mg PO Q6H PRN (Reason: mild pain/fever)
Discontinued
aspirin 81 mg tablet,chewable
81 mg PO DAILY
metoprolol succinate 25 mg Tablet Extended Release 24 Hr
25 mg PO DAILY Qty: 90 0RF
Discharge Orders:
Discharge Patient (As Directed); Ordered 11/17/23
Ordered By: Chetan Escobar
Care Plan Goals
Care Plan Goals:
Problem: Readiness for enhanced knowledge related to diagnosis and treatment plan
Goal: Understand your diagnosis and treatment plan needs, including medications if applicable.
Instructions: Know your diagnosis, underlying causes and treatment plan options, including medications if applicable. Consult with your health care team to learn about your diagnosis and treatment plan, including medications if applicable.
Discharge Date and Time
Discharge Date/Time: 11/17/23 13:11
== END 2023-11-17 13:11 | disposition home or self-care (01) | DRG 309 ==
LOC: IVU 18:32
PROVIDERS: Emergency Medicine; ADMITTING PHYSICIAN Hospitalist; ATTENDING PHYSICIAN Hospitalist; EMERGENCY PHYSICIAN Emergency Medicine; FAMILY PHYSICIAN Family Medicine; OTHER PHYSICIAN Internal Medicine; OTHER PHYSICIAN Thoracic Surgery (Cardiothoracic Vascular Surgery)
PROC: B24BZZ4 Ultrasonography of Heart with Aorta, Transesophageal (ICD-10-PCS; 2023-11-15)
DX: I48.91 Unspecified atrial fibrillation (principal); I25.810 Atherosclerosis of coronary artery bypass graft(s) without angina pectoris; Z79.02 Long term (current) use of antithrombotics/antiplatelets; K21.9 Gastro-esophageal reflux disease without esophagitis; I10 Essential (primary) hypertension; E78.00 Pure hypercholesterolemia, unspecified; I48.92 Unspecified atrial flutter; I25.2 Old myocardial infarction; E66.01 Morbid (severe) obesity due to excess calories; Z68.38 Body mass index [BMI] 38.0-38.9, adult; Z79.01 Long term (current) use of anticoagulants; I51.3 Intracardiac thrombosis, not elsewhere classified
CPT/HCPCS: 71046; 80048; 80053; 83880; 84484; 85025; 85027; 86803; 93005; 93306; 93312; 93320; 93325; 96365; 96366; 99285

== ENCOUNTER 2023-12-19 07:19 | Day surgery (SDC) | payer BC, SELFPAY | END 2023-12-19 09:02 | disposition home or self-care (01) | LOC: CATH 07:19 | PROVIDERS: ATTENDING PHYSICIAN Internal Medicine; FAMILY PHYSICIAN Family Medicine; OTHER PHYSICIAN Internal Medicine Cardiovascular Disease | DX: I48.0 Paroxysmal atrial fibrillation (principal); I48.92 Unspecified atrial flutter; I08.1 Rheumatic disorders of both mitral and tricuspid valves; Q21.12 Patent foramen ovale; I25.10 Atherosclerotic heart disease of native coronary artery without angina pectoris; Z95.1 Presence of aortocoronary bypass graft; K21.9 Gastro-esophageal reflux disease without esophagitis; Z79.82 Long term (current) use of aspirin; Z79.02 Long term (current) use of antithrombotics/antiplatelets; Z79.01 Long term (current) use of anticoagulants | CPT/HCPCS: 93312; 93320; 93325 ==

== ENCOUNTER 2024-01-11 11:18 | Outpatient (RCR) | payer BC, SELFPAY ==
[2023-12-21 14:17] LABS: HDL Cholesterol 55 mg/dl; LDL Cholesterol, Calculated 51 mg/dl; Total Cholesterol 113 mg/dl (50-199); Triglyceride 35 mg/dl (10-149); Very Low Density Lipoprotein 7 mg/dl (0-30)
== END 2024-01-11 23:59 | disposition home or self-care (01) ==
LOC: CRHB 11:18
PROVIDERS: ATTENDING PHYSICIAN Internal Medicine Cardiovascular Disease; FAMILY PHYSICIAN Family Medicine
DX: Z95.1 Presence of aortocoronary bypass graft (principal)
CPT/HCPCS: 36415; 80061; 93797; 93798

== ENCOUNTER → 2024-01-16 08:19 | Outpatient (REF) | payer BC, SELFPAY | LOC: PAVMRI 08:19 | PROVIDERS: ATTENDING PHYSICIAN Internal Medicine; FAMILY PHYSICIAN Family Medicine | DX: I51.3 Intracardiac thrombosis, not elsewhere classified (principal); I71.21 Aneurysm of the ascending aorta, without rupture | CPT/HCPCS: 75561; 75565; A9585 ==

== ENCOUNTER 2024-01-21 07:00 | Day surgery (SDC) | payer BC, SELFPAY | END 2024-01-21 09:01 | disposition home or self-care (01) | LOC: CATH 07:00 | PROVIDERS: ATTENDING PHYSICIAN Internal Medicine Cardiovascular Disease; FAMILY PHYSICIAN Family Medicine; OTHER PHYSICIAN Internal Medicine | DX: I48.91 Unspecified atrial fibrillation (principal); I48.3 Typical atrial flutter; I08.1 Rheumatic disorders of both mitral and tricuspid valves; I25.10 Atherosclerotic heart disease of native coronary artery without angina pectoris; I25.2 Old myocardial infarction; Z95.5 Presence of coronary angioplasty implant and graft; Z95.1 Presence of aortocoronary bypass graft; I10 Essential (primary) hypertension; E78.5 Hyperlipidemia, unspecified; K21.9 Gastro-esophageal reflux disease without esophagitis; Z79.02 Long term (current) use of antithrombotics/antiplatelets | CPT/HCPCS: 93312; 93320; 93325; 88305; 92960; 93005; 93797; 93798 ==

== ENCOUNTER 2024-01-28 10:00 | Outpatient (RCR) | payer BC, SELFPAY | END 2024-01-28 23:59 | disposition home or self-care (01) | LOC: CRHB 10:00 | PROVIDERS: ATTENDING PHYSICIAN Internal Medicine Cardiovascular Disease; FAMILY PHYSICIAN Family Medicine | DX: I25.10 Atherosclerotic heart disease of native coronary artery without angina pectoris (principal); Z95.1 Presence of aortocoronary bypass graft | CPT/HCPCS: 93797; 93798 ==

== ENCOUNTER → 2024-02-28 14:48 | Outpatient (REF) | payer BC, SELFPAY | LOC: RCS 14:48 | PROVIDERS: ATTENDING PHYSICIAN Thoracic Surgery (Cardiothoracic Vascular Surgery); FAMILY PHYSICIAN Family Medicine | DX: Z98.890 Other specified postprocedural states (principal) | CPT/HCPCS: 93306 ==

== ENCOUNTER → 2024-04-03 12:27 | Outpatient (REF) | payer BC, SELFPAY ==
[2024-04-03 13:41] LABS: % Basophils 1.4 % (0-2); % Eosinophils 5.8 % (0-6); % Immature Granulocytes 0.5 % (0-0.5); % Lymphocytes 21.2 % (20.5-51.1); % Neutrophils 63.1 % (42.2-75.2); Absolute Basophils 0.1 10^3/uL (0-0.2); Absolute Eosinophils 0.4 10^3/uL (0-0.7); Absolute Lymphocytes 1.4 10^3/uL (1.2-3.4); Absolute Monocytes 0.5 10^3/uL (0.1-0.6); Absolute Neutrophils 4.1 10^3/uL (1.4-6.5); Hematocrit 31.7 % (39.0-52.0); Hemoglobin 9.3 g/dL (13.0-18.0); Mean Corp Hgb Conc. 29.3 g/dL (33.0-37.0); Mean Corpuscular Hgb 21.4 pg (27.0-31.0); Mean Corpuscular Volume 72.9 fL (80.0-94.0); Mean Platelet Volume 9.5 fL (7.4-10.4); Nucleated Red Blood Cells % 0 % (-); Platelet Count 377 10^3/uL (130-400); Red Blood Cell Count 4.35 10^6/uL (4.70-6.10); Red Cell Dist. Width 19.6 % (11.5-14.5); White Blood Cell Count 6.5 10^3/uL (4.8-10.8)
[2024-04-03 14:05] LABS: ALT (SGPT) 35 U/L (0-50); AST (SGOT) 35 U/L (17-59); Alkaline Phosphatase 74 U/L (38-126); Blood Urea Nitrogen 15 mg/dl (9-20); Calcium 9.6 mg/dl (8.4-10.2); Carbon Dioxide 23 mmol/L (22-30); Chloride 107 mmol/L (98-107); Glucose 86 mg/dl (70-99); HDL Cholesterol 57 mg/dl; Iron 34 ug/dl (49-181); LDL Cholesterol, Calculated 69 mg/dl; Potassium 4.5 mmol/L (3.5-5.1); Sodium 138 mmol/L (135-145); Total Bilirubin 1.1 mg/dl (0.2-1.3); Total Cholesterol 135 mg/dl (50-199); Total Protein 6.6 g/dl (6.3-8.2); Triglyceride 45 mg/dl (10-149); Very Low Density Lipoprotein 9 mg/dl (0-30); eGFR > 60.00
[2024-04-03 14:19] LABS: Vitamin D, 25-OH*** 32.7 ng/mL (30-80)
[2024-04-03 14:37] LABS: Ferritin 5.7 ng/ml (17.9-464.0); Glycohemoglobin (HgbA1c) 5.6 % (4.0-5.6)
== END ==
LOC: REG 12:27
PROVIDERS: ATTENDING PHYSICIAN Family Medicine
DX: Z00.00 Encounter for general adult medical examination without abnormal findings (principal); I25.10 Atherosclerotic heart disease of native coronary artery without angina pectoris; I11.9 Hypertensive heart disease without heart failure; I71.21 Aneurysm of the ascending aorta, without rupture; I10 Essential (primary) hypertension; Z95.1 Presence of aortocoronary bypass graft; Z79.899 Other long term (current) drug therapy; E61.1 Iron deficiency; D50.9 Iron deficiency anemia, unspecified
CPT/HCPCS: 36415; 80053; 80061; 82306; 82728; 83036; 83540; 85025

== ENCOUNTER 2024-05-12 09:49 | Outpatient (RCR) | payer BC, SELFPAY ==
[2024-05-05 10:30] VITALS: BP 119/53
[2024-05-05] MEDS: INJECTAFER 265 MG IV (10:49)
[2024-05-05 11:47] VITALS: BP 125/71
[2024-05-12 10:00] VITALS: BP 125/65
[2024-05-12] MEDS: INJECTAFER 265 MG IV (10:10)
[2024-05-12 10:57] LABS: % Basophils 1.5 % (0-2); % Eosinophils 8.6 % (0-6); % Immature Granulocytes 0.2 % (0-0.5); % Lymphocytes 21.9 % (20.5-51.1); % Monocytes 9.2 % (1.7-9.3); % Neutrophils 58.6 % (42.2-75.2); Absolute Basophils 0.1 10^3/uL (0-0.2); Absolute Eosinophils 0.5 10^3/uL (0-0.7); Absolute Lymphocytes 1.2 10^3/uL (1.2-3.4); Absolute Monocytes 0.5 10^3/uL (0.1-0.6); Absolute Neutrophils 3.1 10^3/uL (1.4-6.5); Hematocrit 35.2 % (39.0-52.0); Hemoglobin 11.6 g/dL (13.0-18.0); Mean Corpuscular Hgb 28.2 pg (27.0-31.0); Mean Corpuscular Volume 85.6 fL (80.0-94.0); Mean Platelet Volume 9.3 fL (7.4-10.4); Nucleated Red Blood Cells % 0 % (-); Platelet Count 329 10^3/uL (130-400); Red Blood Cell Count 4.11 10^6/uL (4.70-6.10); Red Cell Dist. Width 23.7 % (11.5-14.5); White Blood Cell Count 5.2 10^3/uL (4.8-10.8)
[2024-05-12 11:09] LABS: Phosphorus 2.8 mg/dl (2.5-4.5)
== END 2024-05-14 23:59 | disposition home or self-care (01) ==
LOC: OID 09:49
PROVIDERS: ATTENDING PHYSICIAN Internal Medicine Hematology & Oncology; FAMILY PHYSICIAN Family Medicine
DX: D50.0 Iron deficiency anemia secondary to blood loss (chronic) (principal); Z48.812 Encounter for surgical aftercare following surgery on the circulatory system; Z79.01 Long term (current) use of anticoagulants
CPT/HCPCS: 36415; 84100; 85025; 96365; J1439

== ENCOUNTER → 2024-05-29 12:20 | Outpatient (REF) | payer BC, SELFPAY ==
[2024-05-29 12:44] LABS: % Basophils 1.4 % (0-2); % Eosinophils 6.7 % (0-6); % Immature Granulocytes 0.3 % (0-0.5); % Lymphocytes 21.6 % (20.5-51.1); % Monocytes 8.2 % (1.7-9.3); % Neutrophils 61.8 % (42.2-75.2); Absolute Basophils 0.1 10^3/uL (0-0.2); Absolute Eosinophils 0.4 10^3/uL (0-0.7); Absolute Lymphocytes 1.4 10^3/uL (1.2-3.4); Absolute Monocytes 0.5 10^3/uL (0.1-0.6); Absolute Neutrophils 4.1 10^3/uL (1.4-6.5); Hematocrit 37.7 % (39.0-52.0); Hemoglobin 12.4 g/dL (13.0-18.0); Mean Corp Hgb Conc. 32.9 g/dL (33.0-37.0); Mean Corpuscular Volume 88.1 fL (80.0-94.0); Mean Platelet Volume 9.1 fL (7.4-10.4); Nucleated Red Blood Cells % 0 % (-); Platelet Count 365 10^3/uL (130-400); Red Blood Cell Count 4.28 10^6/uL (4.70-6.10); Red Cell Dist. Width 21.2 % (11.5-14.5); White Blood Cell Count 6.6 10^3/uL (4.8-10.8)
[2024-05-29 13:14] LABS: Iron 81 ug/dl (49-181)
[2024-05-29 13:24] LABS: Percent Saturation 30 % (20-50); Total Iron Binding Capacity 268 ug/dl (261-462)
[2024-05-29 16:12] LABS: Ferritin 85.7 ng/ml (17.9-464.0)
== END ==
LOC: REG 12:20
PROVIDERS: ATTENDING PHYSICIAN Internal Medicine Hematology & Oncology; FAMILY PHYSICIAN Family Medicine
DX: D50.0 Iron deficiency anemia secondary to blood loss (chronic) (principal)
CPT/HCPCS: 36415; 82728; 83540; 83550; 85025

== ENCOUNTER → 2024-07-08 07:11 | Outpatient (REF) | payer BC, SELFPAY ==
[2024-07-08 08:03] LABS: % Basophils 1.6 % (0-2); % Eosinophils 7.2 % (0-6); % Immature Granulocytes 0.2 % (0-0.5); % Lymphocytes 28.1 % (20.5-51.1); % Monocytes 8.8 % (1.7-9.3); % Neutrophils 54.1 % (42.2-75.2); Absolute Basophils 0.1 10^3/uL (0-0.2); Absolute Eosinophils 0.4 10^3/uL (0-0.7); Absolute Lymphocytes 1.6 10^3/uL (1.2-3.4); Absolute Monocytes 0.5 10^3/uL (0.1-0.6); Absolute Neutrophils 3.1 10^3/uL (1.4-6.5); Hematocrit 33.7 % (39.0-52.0); Mean Corp Hgb Conc. 32.6 g/dL (33.0-37.0); Mean Corpuscular Hgb 27.5 pg (27.0-31.0); Mean Corpuscular Volume 84.3 fL (80.0-94.0); Mean Platelet Volume 9.4 fL (7.4-10.4); Nucleated Red Blood Cells % 0 % (-); Platelet Count 340 10^3/uL (130-400); Red Cell Dist. Width 14.5 % (11.5-14.5); White Blood Cell Count 5.8 10^3/uL (4.8-10.8)
[2024-07-08 09:13] LABS: Ferritin 7.7 ng/ml (17.9-464.0)
[2024-07-10 08:53] LABS: Phosphorus 3.5 mg/dl (2.5-4.5)
== END ==
LOC: REG 07:11
PROVIDERS: ATTENDING PHYSICIAN Family Medicine
DX: D50.9 Iron deficiency anemia, unspecified (principal)
CPT/HCPCS: 36415; 82728; 84100; 85025

== ENCOUNTER 2024-07-10 07:38 | Outpatient (RCR) | payer BC, SELFPAY ==
[2024-07-10] MEDS: INJECTAFER 265 MG IV (08:17)
[2024-07-10 08:34] VITALS: BP 141/69
[2024-07-10 09:05] VITALS: BP 129/72
== END 2024-07-11 08:44 | disposition home or self-care (01) ==
LOC: OID 07:38
PROVIDERS: ATTENDING PHYSICIAN Internal Medicine Hematology & Oncology; FAMILY PHYSICIAN Family Medicine
DX: D50.0 Iron deficiency anemia secondary to blood loss (chronic) (principal); I25.10 Atherosclerotic heart disease of native coronary artery without angina pectoris; Z79.01 Long term (current) use of anticoagulants
CPT/HCPCS: 96365; J1439

== ENCOUNTER 2024-08-04 06:16 | Day surgery (SDC) | payer BC, SELFPAY | END 2024-08-04 10:05 | disposition home or self-care (01) | LOC: GI 06:16 | PROVIDERS: ATTENDING PHYSICIAN Internal Medicine Gastroenterology; FAMILY PHYSICIAN Family Medicine | DX: D50.9 Iron deficiency anemia, unspecified (principal); K55.20 Angiodysplasia of colon without hemorrhage; K64.8 Other hemorrhoids; K57.30 Diverticulosis of large intestine without perforation or abscess without bleeding; K31.7 Polyp of stomach and duodenum; D12.8 Benign neoplasm of rectum | CPT/HCPCS: 45385; 43239; 88305 ==

== ENCOUNTER → 2024-08-22 12:32 | Outpatient (REF) | payer BC, SELFPAY ==
[2024-08-22 13:39] LABS: % Basophils 1.4 % (0-2); % Eosinophils 7.2 % (0-6); % Immature Granulocytes 0.4 % (0-0.5); % Lymphocytes 25.4 % (20.5-51.1); % Monocytes 9.2 % (1.7-9.3); % Neutrophils 56.4 % (42.2-75.2); Absolute Basophils 0.1 10^3/uL (0-0.2); Absolute Eosinophils 0.4 10^3/uL (0-0.7); Absolute Lymphocytes 1.4 10^3/uL (1.2-3.4); Absolute Monocytes 0.5 10^3/uL (0.1-0.6); Absolute Neutrophils 3.2 10^3/uL (1.4-6.5); Hematocrit 31.3 % (39.0-52.0); Mean Corp Hgb Conc. 31.9 g/dL (33.0-37.0); Mean Corpuscular Hgb 26.4 pg (27.0-31.0); Mean Corpuscular Volume 82.6 fL (80.0-94.0); Mean Platelet Volume 9.5 fL (7.4-10.4); Nucleated Red Blood Cells % 0 % (-); Platelet Count 377 10^3/uL (130-400); Red Blood Cell Count 3.79 10^6/uL (4.70-6.10); Red Cell Dist. Width 15.5 % (11.5-14.5); White Blood Cell Count 5.7 10^3/uL (4.8-10.8)
[2024-08-22 14:09] LABS: Iron 27 ug/dl (49-181)
[2024-08-22 14:20] LABS: Percent Saturation 7 % (20-50); Total Iron Binding Capacity 345 ug/dl (261-462)
[2024-08-22 14:46] LABS: Ferritin 7.2 ng/ml (17.9-464.0)
== END ==
LOC: REG 12:32
PROVIDERS: ATTENDING PHYSICIAN Nurse Practitioner Primary Care; FAMILY PHYSICIAN Family Medicine
DX: D50.0 Iron deficiency anemia secondary to blood loss (chronic) (principal)
CPT/HCPCS: 36415; 82728; 83540; 83550; 85025

== ENCOUNTER 2024-09-12 09:49 | Outpatient (RCR) | payer BC, SELFPAY ==
[2024-09-02 09:50] VITALS: BP 122/64
[2024-09-02] MEDS: INJECTAFER 265 MG IV (10:03)
[2024-09-02 10:35] VITALS: BP 122/65
[2024-09-12 10:00] VITALS: BP 156/47
[2024-09-12] MEDS: INJECTAFER 265 MG IV (10:15)
[2024-09-12 10:45] LABS: % Basophils 1.8 % (0-2); % Eosinophils 8.1 % (0-6); % Immature Granulocytes 0.2 % (0-0.5); % Lymphocytes 24.8 % (20.5-51.1); % Monocytes 8.5 % (1.7-9.3); % Neutrophils 56.6 % (42.2-75.2); Absolute Basophils 0.1 10^3/uL (0-0.2); Absolute Eosinophils 0.4 10^3/uL (0-0.7); Absolute Lymphocytes 1.1 10^3/uL (1.2-3.4); Absolute Monocytes 0.4 10^3/uL (0.1-0.6); Absolute Neutrophils 2.5 10^3/uL (1.4-6.5); Hematocrit 33.9 % (39.0-52.0); Hemoglobin 10.5 g/dL (13.0-18.0); Mean Corpuscular Hgb 25.7 pg (27.0-31.0); Mean Corpuscular Volume 83.1 fL (80.0-94.0); Mean Platelet Volume 9.2 fL (7.4-10.4); Nucleated Red Blood Cells % 0 % (-); Platelet Count 277 10^3/uL (130-400); Red Blood Cell Count 4.08 10^6/uL (4.70-6.10); Red Cell Dist. Width 20.9 % (11.5-14.5); White Blood Cell Count 4.5 10^3/uL (4.8-10.8)
[2024-09-12 11:11] LABS: Vitamin D, 25-OH*** 30.2 ng/mL (30-80)
[2024-09-12 11:25] VITALS: BP 128/72
== END 2024-09-13 23:59 | disposition home or self-care (01) ==
LOC: OID 09:49
PROVIDERS: ATTENDING PHYSICIAN Internal Medicine Hematology & Oncology; FAMILY PHYSICIAN Family Medicine
DX: D50.0 Iron deficiency anemia secondary to blood loss (chronic) (principal); Z48.812 Encounter for surgical aftercare following surgery on the circulatory system; Z79.01 Long term (current) use of anticoagulants
CPT/HCPCS: 82306; 85025; 96365; J1439

== ENCOUNTER → 2024-10-22 14:59 | Outpatient (REF) | payer BC, SELFPAY ==
[2024-10-22 15:50] LABS: % Basophils 1.5 % (0-2); % Eosinophils 6.3 % (0-6); % Immature Granulocytes 0.1 % (0-0.5); % Monocytes 8.9 % (1.7-9.3); % Neutrophils 61.2 % (42.2-75.2); Absolute Basophils 0.1 10^3/uL (0-0.2); Absolute Eosinophils 0.4 10^3/uL (0-0.7); Absolute Lymphocytes 1.5 10^3/uL (1.2-3.4); Absolute Monocytes 0.6 10^3/uL (0.1-0.6); Absolute Neutrophils 4.2 10^3/uL (1.4-6.5); Hematocrit 40.8 % (39.0-52.0); Mean Corp Hgb Conc. 31.9 g/dL (33.0-37.0); Mean Corpuscular Hgb 27.2 pg (27.0-31.0); Mean Corpuscular Volume 85.4 fL (80.0-94.0); Mean Platelet Volume 9.4 fL (7.4-10.4); Nucleated Red Blood Cells % 0 % (-); Platelet Count 324 10^3/uL (130-400); Red Blood Cell Count 4.78 10^6/uL (4.70-6.10); Red Cell Dist. Width 20.4 % (11.5-14.5); White Blood Cell Count 6.8 10^3/uL (4.8-10.8)
[2024-10-22 16:05] LABS: Iron 60 ug/dl (49-181)
[2024-10-22 16:14] LABS: Percent Saturation 18 % (20-50); Total Iron Binding Capacity 324 ug/dl (261-462)
[2024-10-22 16:40] LABS: Ferritin 9.9 ng/ml (17.9-464.0)
== END ==
LOC: REG 14:59
PROVIDERS: ATTENDING PHYSICIAN Nurse Practitioner Primary Care; FAMILY PHYSICIAN Family Medicine
DX: D50.0 Iron deficiency anemia secondary to blood loss (chronic) (principal)
CPT/HCPCS: 36415; 82728; 83540; 83550; 85025

== ENCOUNTER 2024-11-12 12:53 | Outpatient (RCR) | payer BC, SELFPAY ==
[2024-11-12 13:05] VITALS: BP 136/86
[2024-11-12] MEDS: INJECTAFER 265 MG IV (13:19)
[2024-11-12 14:16] VITALS: BP 138/81
== END 2024-11-13 11:03 | disposition home or self-care (01) ==
LOC: OID 12:53
PROVIDERS: ATTENDING PHYSICIAN Internal Medicine Hematology & Oncology; FAMILY PHYSICIAN Family Medicine
DX: D50.0 Iron deficiency anemia secondary to blood loss (chronic) (principal); Z48.812 Encounter for surgical aftercare following surgery on the circulatory system; Z79.01 Long term (current) use of anticoagulants; Z95.1 Presence of aortocoronary bypass graft
CPT/HCPCS: 96365; J1439

== ENCOUNTER 2024-11-24 10:48 | Outpatient (RCR) | payer BC, SELFPAY ==
[2024-11-24 11:00] VITALS: BP 138/73
[2024-11-24] MEDS: INJECTAFER 265 MG IV (11:10)
[2024-11-24 12:32] VITALS: BP 135/71
== END 2024-11-25 08:26 | disposition home or self-care (01) ==
LOC: OID 10:48
PROVIDERS: ATTENDING PHYSICIAN Internal Medicine Hematology & Oncology; FAMILY PHYSICIAN Family Medicine
DX: D50.0 Iron deficiency anemia secondary to blood loss (chronic) (principal); Z48.812 Encounter for surgical aftercare following surgery on the circulatory system; Z79.01 Long term (current) use of anticoagulants; Z95.2 Presence of prosthetic heart valve
CPT/HCPCS: 96365; J1439

== ENCOUNTER → 2024-12-30 11:59 | Outpatient (REF) | payer BC, SELFPAY ==
[2024-12-30 12:50] LABS: % Basophils 1.1 % (0-2); % Eosinophils 6.5 % (0-6); % Immature Granulocytes 0.3 % (0-0.5); % Lymphocytes 19.1 % (20.5-51.1); % Monocytes 7.3 % (1.7-9.3); % Neutrophils 65.7 % (42.2-75.2); Absolute Basophils 0.1 10^3/uL (0-0.2); Absolute Eosinophils 0.5 10^3/uL (0-0.7); Absolute Lymphocytes 1.4 10^3/uL (1.2-3.4); Absolute Monocytes 0.5 10^3/uL (0.1-0.6); Absolute Neutrophils 4.8 10^3/uL (1.4-6.5); Hematocrit 46.4 % (39.0-52.0); Hemoglobin 15.4 g/dL (13.0-18.0); Mean Corp Hgb Conc. 33.2 g/dL (33.0-37.0); Mean Corpuscular Hgb 29.7 pg (27.0-31.0); Mean Corpuscular Volume 89.6 fL (80.0-94.0); Nucleated Red Blood Cells % 0 % (-); Platelet Count 298 10^3/uL (130-400); Red Blood Cell Count 5.18 10^6/uL (4.70-6.10); Red Cell Dist. Width 17.8 % (11.5-14.5); White Blood Cell Count 7.3 10^3/uL (4.8-10.8)
[2024-12-30 13:30] LABS: Iron 113 ug/dl (49-181)
[2024-12-30 13:39] LABS: Percent Saturation 40 % (20-50); Total Iron Binding Capacity 279 ug/dl (261-462)
[2024-12-30 14:07] LABS: Ferritin 40.5 ng/ml (17.9-464.0)
== END ==
LOC: REG 11:59
PROVIDERS: ATTENDING PHYSICIAN Nurse Practitioner Adult Health; FAMILY PHYSICIAN Family Medicine
DX: D50.0 Iron deficiency anemia secondary to blood loss (chronic) (principal)
CPT/HCPCS: 36415; 82728; 83540; 83550; 85025

== ENCOUNTER → 2025-03-02 14:11 | Outpatient (REF) | payer BC, SELFPAY | LOC: RCS 14:11 | PROVIDERS: ATTENDING PHYSICIAN Nurse Practitioner Acute Care; FAMILY PHYSICIAN Family Medicine | DX: Z98.890 Other specified postprocedural states (principal) | CPT/HCPCS: 93306 ==

== ENCOUNTER → 2025-03-16 13:16 | Outpatient (REF) | payer BC, SELFPAY ==
[2025-03-16 13:39] LABS: % Basophils 1.6 % (0-2); % Eosinophils 6.1 % (0-6); % Immature Granulocytes 0.4 % (0-0.5); % Lymphocytes 27.2 % (20.5-51.1); % Monocytes 9.2 % (1.7-9.3); % Neutrophils 55.5 % (42.2-75.2); Absolute Basophils 0.1 10^3/uL (0-0.2); Absolute Eosinophils 0.3 10^3/uL (0-0.7); Absolute Lymphocytes 1.5 10^3/uL (1.2-3.4); Absolute Monocytes 0.5 10^3/uL (0.1-0.6); Absolute Neutrophils 3.1 10^3/uL (1.4-6.5); Hematocrit 40.3 % (39.0-52.0); Hemoglobin 13.6 g/dL (13.0-18.0); Mean Corp Hgb Conc. 33.7 g/dL (33.0-37.0); Mean Corpuscular Hgb 30.2 pg (27.0-31.0); Mean Corpuscular Volume 89.4 fL (80.0-94.0); Mean Platelet Volume 9.2 fL (7.4-10.4); Nucleated Red Blood Cells % 0 % (-); Platelet Count 313 10^3/uL (130-400); Red Blood Cell Count 4.51 10^6/uL (4.70-6.10); Red Cell Dist. Width 12.9 % (11.5-14.5); White Blood Cell Count 5.6 10^3/uL (4.8-10.8)
[2025-03-16 14:17] LABS: ALT (SGPT) 31 U/L (0-50); AST (SGOT) 40 U/L (17-59); Albumin 4.4 g/dl (3.5-5.0); Alkaline Phosphatase 73 U/L (38-126); Blood Urea Nitrogen 16 mg/dl (9-20); Carbon Dioxide 22 mmol/L (22-30); Chloride 113 mmol/L (98-107); Glucose 97 mg/dl (70-99); Iron 60 ug/dl (49-181); Sodium 142 mmol/L (135-145); Total Bilirubin 1.1 mg/dl (0.2-1.3); Total Protein 6.6 g/dl (6.3-8.2); eGFR > 60.00
[2025-03-16 14:26] LABS: Percent Saturation 17 % (20-50); Total Iron Binding Capacity 338 ug/dl (261-462)
[2025-03-16 15:58] LABS: Ferritin 9.2 ng/ml (17.9-464.0)
[2025-03-16 16:12] LABS: Vitamin B12 211 pg/ml (239-931)
== END ==
LOC: RAD 13:16
PROVIDERS: ATTENDING PHYSICIAN Family Medicine
DX: Z95.1 Presence of aortocoronary bypass graft (principal); D50.9 Iron deficiency anemia, unspecified; I25.10 Atherosclerotic heart disease of native coronary artery without angina pectoris; Z68.41 Body mass index [BMI] 40.0-44.9, adult
CPT/HCPCS: 36415; 80053; 82607; 82728; 83036; 83540; 83550; 85025

== ENCOUNTER → 2025-04-15 09:49 | Outpatient (REF) | payer BC, SELFPAY ==
[2025-04-15 10:05] LABS: Hematocrit 36.9 % (39.0-52.0); Hemoglobin 12.1 g/dL (13.0-18.0); Mean Corp Hgb Conc. 32.8 g/dL (33.0-37.0); Mean Corpuscular Volume 86.8 fL (80.0-94.0); Platelet Count 300 10^3/uL (130-400); Red Cell Dist. Width 12.5 % (11.5-14.5)
[2025-04-15 11:01] LABS: Iron 32 ug/dl (49-181)
[2025-04-15 11:10] LABS: Total Iron Binding Capacity 350 ug/dl (261-462)
[2025-04-15 11:38] LABS: Ferritin 6.7 ng/ml (17.9-464.0)
== END ==
LOC: OIDL 09:49
PROVIDERS: ATTENDING PHYSICIAN Nurse Practitioner Primary Care; FAMILY PHYSICIAN Family Medicine
DX: D50.0 Iron deficiency anemia secondary to blood loss (chronic) (principal)
CPT/HCPCS: 36415; 82728; 83540; 83550; 85025

== ENCOUNTER 2025-04-30 08:17 | Outpatient (RCR) | payer BC, SELFPAY ==
[2025-04-23 08:50] VITALS: BP 135/66
[2025-04-23] MEDS: INJECTAFER 265 MG IV (08:56)
[2025-04-23 09:51] VITALS: BP 133/68
[2025-04-30 08:30] VITALS: BP 120/60
[2025-04-30 08:43] LABS: Hematocrit 38.0 % (39.0-52.0); Hemoglobin 12.2 g/dL (13.0-18.0); Mean Corp Hgb Conc. 32.1 g/dL (33.0-37.0); Mean Corpuscular Volume 88.4 fL (80.0-94.0); Platelet Count 301 10^3/uL (130-400); Red Cell Dist. Width 14.3 % (11.5-14.5)
[2025-04-30] MEDS: INJECTAFER 265 MG IV (08:43)
== END 2025-05-14 23:59 | disposition home or self-care (01) ==
LOC: OID 08:17
PROVIDERS: ATTENDING PHYSICIAN Nurse Practitioner Primary Care; FAMILY PHYSICIAN Family Medicine
DX: D50.0 Iron deficiency anemia secondary to blood loss (chronic) (principal); E53.8 Deficiency of other specified B group vitamins; R53.83 Other fatigue; Z95.1 Presence of aortocoronary bypass graft
CPT/HCPCS: 84100; 85025; 96365; J1439

== ENCOUNTER → 2025-06-05 12:37 | Outpatient (REF) | payer BC, SELFPAY ==
[2025-06-05 13:38] LABS: Hematocrit 46.0 % (39.0-52.0); Hemoglobin 15.0 g/dL (13.0-18.0); Mean Corp Hgb Conc. 32.6 g/dL (33.0-37.0); Mean Corpuscular Volume 89.8 fL (80.0-94.0); Nucleated Red Blood Cells % 0 % (-); Platelet Count 284 10^3/uL (130-400); Red Cell Dist. Width 17.2 % (11.5-14.5)
[2025-06-05 14:39] LABS: ALT (SGPT) 38 U/L (0-50); AST (SGOT) 32 U/L (17-59); Albumin 4.3 g/dl (3.5-5.0); Alkaline Phosphatase 75 U/L (38-126); Blood Urea Nitrogen 13 mg/dl (9-20); Calcium 9.5 mg/dl (8.4-10.2); Carbon Dioxide 25 mmol/L (22-30); Chloride 109 mmol/L (98-107); Glucose 79 mg/dl (70-99); HDL Cholesterol 55 mg/dl; LDL Cholesterol, Calculated 84 mg/dl; Potassium 4.2 mmol/L (3.5-5.1); Sodium 140 mmol/L (135-145); Total Protein 6.5 g/dl (6.3-8.2); Very Low Density Lipoprotein 8 mg/dl (0-30); eGFR > 60.00
[2025-06-05 15:23] LABS: Ferritin 35.6 ng/ml (17.9-464.0)
== END ==
LOC: REG 12:37
PROVIDERS: ATTENDING PHYSICIAN Internal Medicine Hematology & Oncology; FAMILY PHYSICIAN Family Medicine; OTHER PHYSICIAN Internal Medicine
DX: D50.0 Iron deficiency anemia secondary to blood loss (chronic) (principal); I25.10 Atherosclerotic heart disease of native coronary artery without angina pectoris; I10 Essential (primary) hypertension; E78.00 Pure hypercholesterolemia, unspecified
CPT/HCPCS: 36415; 80053; 80061; 82728; 84100; 85025

== ENCOUNTER → 2025-07-27 09:38 | Outpatient (REF) | payer BC, SELFPAY ==
[2025-07-27 11:25] LABS: Hematocrit 43.4 % (39.0-52.0); Hemoglobin 14.4 g/dL (13.0-18.0); Mean Corp Hgb Conc. 33.2 g/dL (33.0-37.0); Mean Corpuscular Volume 90.0 fL (80.0-94.0); Nucleated Red Blood Cells % 0 % (-); Platelet Count 283 10^3/uL (130-400); Red Cell Dist. Width 14.8 % (11.5-14.5)
[2025-07-27 12:14] LABS: Iron 76 ug/dl (49-181)
[2025-07-27 12:24] LABS: Total Iron Binding Capacity 334 ug/dl (261-462)
[2025-07-27 12:26] LABS: Ferritin 10.3 ng/ml (17.9-464.0)
== END ==
LOC: REG 09:38
PROVIDERS: ATTENDING PHYSICIAN Nurse Practitioner Primary Care
DX: D50.0 Iron deficiency anemia secondary to blood loss (chronic) (principal)
CPT/HCPCS: 36415; 82728; 83540; 83550; 85025

== ENCOUNTER → 2025-10-06 12:16 | Outpatient (REF) | payer BC, SELFPAY ==
[2025-10-06 13:05] LABS: Hematocrit 39.7 % (39.0-52.0); Hemoglobin 12.8 g/dL (13.0-18.0); Mean Corp Hgb Conc. 32.2 g/dL (33.0-37.0); Mean Corpuscular Volume 85.4 fL (80.0-94.0); Nucleated Red Blood Cells % 0 % (-); Platelet Count 337 10^3/uL (130-400); Red Cell Dist. Width 12.8 % (11.5-14.5)
[2025-10-06 13:51] LABS: ALT (SGPT) 30 U/L (0-50); AST (SGOT) 30 U/L (17-59); Albumin 4.3 g/dl (3.5-5.0); Alkaline Phosphatase 54 U/L (38-126); Blood Urea Nitrogen 15 mg/dl (9-20); Calcium 9.6 mg/dl (8.4-10.2); Carbon Dioxide 25 mmol/L (22-30); Chloride 105 mmol/L (98-107); Glucose 81 mg/dl (70-99); HDL Cholesterol 70 mg/dl; LDL Cholesterol, Calculated 80 mg/dl; Potassium 4.6 mmol/L (3.5-5.1); Sodium 136 mmol/L (135-145); Total Protein 6.9 g/dl (6.3-8.2); Very Low Density Lipoprotein 11 mg/dl (0-30); eGFR > 60.00
[2025-10-06 13:56] LABS: Iron 42 ug/dl (49-181)
[2025-10-06 14:06] LABS: Total Iron Binding Capacity 375 ug/dl (261-462)
[2025-10-06 14:27] LABS: Ferritin 6.7 ng/ml (17.9-464.0)
== END ==
LOC: REG 12:16
PROVIDERS: ATTENDING PHYSICIAN Internal Medicine; FAMILY PHYSICIAN Family Medicine; REFERRING PHYSICIAN Nurse Practitioner Primary Care
DX: D50.0 Iron deficiency anemia secondary to blood loss (chronic) (principal); I48.0 Paroxysmal atrial fibrillation; I48.3 Typical atrial flutter; I71.21 Aneurysm of the ascending aorta, without rupture; I25.10 Atherosclerotic heart disease of native coronary artery without angina pectoris; I51.3 Intracardiac thrombosis, not elsewhere classified; Z95.1 Presence of aortocoronary bypass graft; Z95.5 Presence of coronary angioplasty implant and graft; I24.9 Acute ischemic heart disease, unspecified; I25.2 Old myocardial infarction
CPT/HCPCS: 36415; 80053; 80061; 82728; 83540; 83550; 85025